=== PATIENT | female | born 1990 ===

== ENCOUNTER 2024-08-12 16:15 | Inpatient (IN) | payer MEDICARE, OTHER ==
[~2024-08-12] VITALS: Wt 65.6 kg
--- NOTE | 2024-08-12 16:19 | NUR ---
PT ARRIVAL TO PCU PT ARRIVED TO PCU 6 VIA AMBULANCE DIRECT ADMIT FROM [facility] AT 1600. UPON ARRIVAL, PT IS UNAROUSABLE TO VERBAL AND PHYSICAL STIMULI. SOME BODILY MOVEMENT/JERKING, BUT NO GROANING OR GRIMACE. PT TRANSFERRED TO HOSPITAL BED VIA SLIDE TRANSFER. PERSONAL BELONGINGS IN A BELONGINGS BAG AND LOCKED IN CLOSET IN PT'S ROOM. 1:1 SITTER PRESENT.
[2024-08-12 16:26] VITALS: BP 133/86
--- NOTE | 2024-08-12 16:49 | NUR ---
ARRIVAL TO PCU PT ARRIVED TO PCU AT 1600 VIA GURNEY AND 2 MEMBERS OF THE TRANSPORT. ROOM MITIGATED PRIOR TO PT ARRIVAL . PT SLID FROM [facility] TO PCU BED VIA 4 STAFF MEMBERS. PT NOT RESPONDING TO VERBAL OR PAIN STIMULI, STERNAL RUB AND PENLIGHT TO FINGERNAILS. PUPILS SMALL, 1-2, BUT RESPONSIVE. PT ROLLED SIDE TO SIDE BY STAFF, PT CONTINUES TO BE UNRESPONSIVE TO THE MOVEMENTS. SKIN ASSESSED BY THIS RN AND RACHID RN. SCRATHES SCATTERED THROUGHOUT. SCARS FROM OLD APPARENT SELF INFLICTED CUT GUTIERREZ. PT HAS SCAR TO FOREHEAD ABOUT MID BROW AREA, APPROX 1 INCH LONG. PT HAS 2 OLD OSTOMY SITES ON ABD AND SCAR AT UMBILCUS. PT TONGUE NOTED TO BE CONSTANTLY QUIVERING, MD NOTIFED AT BEDSIDE OF ABOVE FINDINGS. A 1:1 SITTER PRESENT AT TIME OF PT'S ARRIVAL TO UNIT AND UPDATED. PT HAS ANDREA PRESENT AT TIME OF ARRIVAL, PATENT WITH YELLOW URINE. PT CHANGED TO PAPER SCRUB TOP AND ATTENDS AFTER CLEANING CATHETER FROM BLOOD FROM APPARENT MENSTUAL CYCLE.
[2024-08-12] MEDS ORDERED: NS 1,000 ML IV SCH (17:10)
[2024-08-12 17:46] LABS: BASOPHILS PERCENT AUTO 1 % (0-2); EOSINOPHILS ABSOLUTE AUTO 0.04 K/mm3 (0.00-0.68); EOSINOPHILS PERCENT AUTO 0 % (0-6); Hemoglobin 12.6 g/dL (11.5-16.0); IMMATURE GRAN ABSOLUTE AUTO 0.06 K/mm3 (0.00-0.10); IMMATURE GRAN PERCENT AUTO 1 % (0-1); LYMPHOCYTES ABSOLUTE AUTO 2.47 K/mm3 (0.84-5.20); LYMPHOCYTES PERCENT AUTO 21 % (21-46); MONOCYTES ABSOLUTE AUTO 0.93 K/mm3 (0.16-1.47); MONOCYTES PERCENT AUTO 8 % (4-13); Mean Corpuscular HGB 30.1 pg (26.0-34.0); Mean Corpuscular HGB Conc 33.2 g/dL (31.5-36.5); Mean Corpuscular Volume 91 fL (80-100); NEUTROPHILS ABSOLUTE AUTO 8.15 K/mm3 (1.96-9.15); NEUTROPHILS PERCENT AUTO 69 % (41-73); Platelet Count 526 K/mm3 (150-400); RDW Coefficient Variation 14.1 % (11.7-14.2); RDW Standard Deviation 46.4 fL (35.1-46.3); Red Blood Cell Count 4.18 M/mm3 (3.80-5.20); White Blood Cell Count 11.75 K/mm3 (4.00-11.30)
[2024-08-12 18:05] LABS: Albumin, Blood 3.5 g/dL (3.4-5.0); Bilirubin, Total 0.3 mg/dL (0.1-1.0); Bun/Creatinine Ratio 20.1 (12.0-20.0); Calcium, Blood 9.1 mg/dL (8.5-10.1); Creatinine, Blood 0.55 mg/dL (0.40-1.00); Globulin, Blood 3.6 g/dL (2.2-4.0); Magnesium, Blood 1.6 mg/dL (1.6-2.4); Phosphorus, Blood 3.5 mg/dL (2.5-4.9); Potassium, Blood 3.7 mmol/L (3.5-5.5); Total Protein, Blood 7.1 g/dL (6.4-8.2)
--- NOTE | 2024-08-12 19:33 | NUR ---
THIS RN OVERSAW, REVIEWED AND AGREES WITH STUDENT RN'S ASSEMENTS AND CHARTING.
[2024-08-12 19:52] VITALS: BP 133/90
[2024-08-12 23:01] VITALS: BP 132/91
--- NOTE | 2024-08-13 03:05 | NUR ---
CHANGE IN CONDITION AT APPROX 0200, PT ABLE TO OPEN EYES, OBEY COMMANDS, RESPOND TO STIMULI, AND VERBALIZE NEEDS. PT ALERT AND ORIENTED TO SELF, SITUATION, DATE, BUT DID NOT REMEMBER GETTING TO THIS HOSPITAL. PT ENDORSES PAIN IN HEAD AND RIGHT HIP BUT UNABLE TO PUT A NUMBER TO THE PAIN. PT MILDLY NAUSEOUS, PROVIDED WITH EMESIS BAG. BEDSIDE SWALLOW TEST CONDUCTED, PT ABLE TO DRINK WATER THROUGH A STRAW WITHOUT COUGHING, CHOKING. CALL PLACED TO MD, SEE NEW ORDERS FOR PAIN MEDICATION AND DIET ORDER CHANGES.
[2024-08-13] MEDS ORDERED: ALBU90OI INH (03:35)
[2024-08-13] MEDS ORDERED: Acetaminophen 325 MG TABLET PO PRN (03:35)
[2024-08-13] MEDS ORDERED: SAPHRIS PO (03:36)
[2024-08-13] MEDS ORDERED: CLON1 PO (03:37)
[2024-08-13] MEDS ORDERED: FAMO40 PO (03:38)
[2024-08-13] MEDS ORDERED: DIVA500ER PO (03:38)
[2024-08-13 03:39] VITALS: BP 142/88
[2024-08-13] MEDS ORDERED: Prozac40 MG PO (03:39)
[2024-08-13] MEDS ORDERED: NALOXONE HCL4 MG (03:40)
[2024-08-13] MEDS ORDERED: ONDA4 PO (03:40)
[2024-08-13] MEDS ORDERED: PROC25S PR (03:44)
[2024-08-13] MEDS ORDERED: PROM25 PO (03:45)
[2024-08-13 04:05] LABS: BASOPHILS PERCENT AUTO 1 % (0-2); EOSINOPHILS ABSOLUTE AUTO 0.05 K/mm3 (0.00-0.68); EOSINOPHILS PERCENT AUTO 0 % (0-6); Hematocrit 37.9 % (33.0-51.0); Hemoglobin 12.4 g/dL (11.5-16.0); IMMATURE GRAN ABSOLUTE AUTO 0.07 K/mm3 (0.00-0.10); IMMATURE GRAN PERCENT AUTO 1 % (0-1); LYMPHOCYTES ABSOLUTE AUTO 2.48 K/mm3 (0.84-5.20); LYMPHOCYTES PERCENT AUTO 19 % (21-46); MONOCYTES ABSOLUTE AUTO 1.01 K/mm3 (0.16-1.47); MONOCYTES PERCENT AUTO 8 % (4-13); Mean Corpuscular HGB 30.4 pg (26.0-34.0); Mean Corpuscular HGB Conc 32.7 g/dL (31.5-36.5); Mean Corpuscular Volume 93 fL (80-100); Mean Platelet Volume 9.3 fL (9.1-12.4); NEUTROPHILS ABSOLUTE AUTO 9.48 K/mm3 (1.96-9.15); NEUTROPHILS PERCENT AUTO 72 % (41-73); Platelet Count 530 K/mm3 (150-400); RDW Coefficient Variation 14.2 % (11.7-14.2); RDW Standard Deviation 47.8 fL (35.1-46.3); Red Blood Cell Count 4.08 M/mm3 (3.80-5.20); White Blood Cell Count 13.19 K/mm3 (4.00-11.30)
[2024-08-13 04:31] LABS: Albumin, Blood 3.2 g/dL (3.4-5.0); Albumin/Globulin Ratio 0.9 (0.8-1.8); Bilirubin, Total 0.4 mg/dL (0.1-1.0); Bun/Creatinine Ratio 15.5 (12.0-20.0); Calcium, Blood 8.9 mg/dL (8.5-10.1); Creatinine, Blood 0.65 mg/dL (0.40-1.00); Globulin, Blood 3.6 g/dL (2.2-4.0); Potassium, Blood 3.7 mmol/L (3.5-5.5); Total Protein, Blood 6.8 g/dL (6.4-8.2)
[2024-08-13] MEDS ORDERED: Nicotine 21 MG PATCH TOP SCH (05:15)
[2024-08-13] MEDS ORDERED: HYDROcodone 5-APAP 325 TAB PO PRN (06:05)
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
[2024-08-13 08:18] VITALS: BP 122/90
[2024-08-13] MEDS ORDERED: Enoxaparin 40 MG/0.4 ML SYR SC SCH (09:00)
[2024-08-13 12:36] VITALS: BP 119/93
[2024-08-13] MEDS ORDERED: Acetamin/Butalbital/Caffeine Tab PO STA (12:55)
[2024-08-13 15:45] VITALS: BP 118/87
--- NOTE | 2024-08-13 18:09 | NUR ---
End of shift note. Pt met with psych this morning. Pt will remain on high SI, no hold. MD would like to keep Pt inhouse for 4 days. Pt has had significant amounts of headache complaints. Medicated per MAY. Head CT this evening. Pt also reported tremor and an increase in stutter. Poison control reported it may be related to the olanzapine overdose. Pt is able to make needs known. 1:1 sitter is at bedside
[2024-08-13 19:28] VITALS: BP 132/91
[2024-08-13] MEDS ORDERED: ClonazePAM 1 MG Tab PO SCH (21:00)
[2024-08-13] MEDS ORDERED: OLANZapine 10 MG Tab PO SCH ×2 (21:00)
[2024-08-13] MEDS ORDERED: ClonazePAM 0.5 MG Tab PO SCH (21:00)
[2024-08-13 23:55] VITALS: BP 112/67
[2024-08-14 03:12] VITALS: BP 110/73
[2024-08-14 04:21] LABS: Hematocrit 33.2 % (33.0-51.0); Hemoglobin 10.9 g/dL (11.5-16.0); Mean Corpuscular HGB 30.2 pg (26.0-34.0); Mean Corpuscular HGB Conc 32.8 g/dL (31.5-36.5); Mean Corpuscular Volume 92 fL (80-100); Mean Platelet Volume 8.9 fL (9.1-12.4); Platelet Count 461 K/mm3 (150-400); RDW Coefficient Variation 13.9 % (11.7-14.2); Red Blood Cell Count 3.61 M/mm3 (3.80-5.20); White Blood Cell Count 7.73 K/mm3 (4.00-11.30)
[2024-08-14 04:40] LABS: Calcium, Blood 8.4 mg/dL (8.5-10.1); Creatinine, Blood 0.63 mg/dL (0.40-1.00); Potassium, Blood 3.8 mmol/L (3.5-5.5)
[2024-08-14] MEDS ORDERED: LORazepam 0.5 MG Tab PO ONE (05:10)
--- NOTE | 2024-08-14 06:06 | NUR ---
SHIFT SUMMARY PT A/OX4, PLEASANT, COOPERATIVE WITH CARE, VERBALIZES NEEDS. 1:1 SITTER FOR HIGH RISK SI, PRECAUTIONS IN PLACE. MILDLY ANXIOUS. ENDORSES SEVERE PAIN IN HEAD AND RIGHT HIP, TREATING PER MAR WITH MIN-MOD IMPROVEMENT. INTERMITTENT TREMORS OBSERVED. ON CONTINUOUS TELEMETRY, SINUS RHYTHM, HR 70 S-90 S. PULSES PALPABLE BY TOUCH. PT DENIES CHEST PAIN/PRESSURE. RA, SATS ABOVE 95%, BREATHING IS UNLABORED. AMBULATING TO BATHROOM WITH SBA FOR CORDS AND LINE MANAGEMENT.
[2024-08-14 08:27] VITALS: BP 114/73
[2024-08-14] MEDS ORDERED: FLUoxetine HCL 20 MG CAP PO SCH (09:00)
[2024-08-14] MEDS ORDERED: SUMAtriptan succinate 50 MG Tab PO PRN (12:05)
[2024-08-14] MEDS ORDERED: HYDROcodone 5-APAP 325 TAB PO PRN (12:10)
[2024-08-14 13:09] VITALS: BP 113/69
[2024-08-14 16:27] VITALS: BP 138/84
--- NOTE | 2024-08-14 17:33 | NUR ---
SHIFT SUMMARY PATIENT AOX4 ABLE TO MAKE NEEDS KNOWN. ABLE TO TOLERATE DIET. ABLE TO AMBULATE TO THE BATHROOM. THE PATIENT COMPLAINS OF HEADACHE HIP PAIN TREMORS AND STUTTERING. THE PATIENT STATES THEY WANT ANOTHER HEAD SCAN THE HOSPITALIST IS AWARE. THE PATIENT ALSO WANTED THEIR PAIN MEDICATION INCREASED. THE PATIENT HAS HAD A 1:1 SITTER FOR THE SHIFT.
[2024-08-14 19:48] VITALS: BP 130/73
--- NOTE | 2024-08-14 19:49 | NUR ---
ASSUMPTION OF CARE PT RESTING IN BED,VISITOR LAYING BEDSIDE PT IN BED.BEDSIDE REPORT COMPLETED,PLAN OF CARE REVIEWED.PT DENIES PAIN,DENIES SOB,DENIES NEEDS A THIS TIME.1:1 SITTER AT BEDSIDE FOR SI PREVENTION PER PROTOCOL.MILD STUTTERING NOTED AND BILATERAL HANDS TREMORS.ASSESSMENT AND TREATMENT ONGOING PER CARE PLAN.
[2024-08-14] MEDS ORDERED: Docusate Sodium 100 MG Cap PO SCH (21:00)
[2024-08-14] MEDS ORDERED: Sennosides 8.6 MG Tab PO SCH (21:00)
[2024-08-14 23:53] VITALS: BP 119/75
[2024-08-15 03:59] VITALS: BP 108/69
--- NOTE | 2024-08-15 06:32 | NUR ---
PT FELL ASLEEP AFTER 2200,PT WAS DIFFICULT TO AROUSE WHILE SLEEPING BUT WHENEVER HE WOKE UP,HE ASKED FOR PAIN MEDICINE FOR HEADACHE.PT RATED HEADACHE AT 10/10 EVERYTIME,SAID THAT THE PRN PAIN MEDS GIVEN ARE NOT EFFECTIVE.1:1 SITTER AT BEDSIDE,SAFETY MEASURES PER SI PROTOCOL OBSERVED.PT STATES THAT HE NEEDS A HEAD MRI BECAUSE HIS HEADACHE IS NOT GETTING BETTER.PT HAD A SHOWER THIS MORNING,REMAINED WITHIN EYE SIGHT OF THE SITTER WHILE SHOWERING.PT AWAKE,SITTING UP IN BED.ASSESSMENT ONGOING PER CAREPLAN IN PLACE.
[2024-08-15 08:31] VITALS: BP 105/69
[2024-08-15] MEDS ORDERED: OLAN10 PO (11:25)
[2024-08-15] MEDS ORDERED: GABA100 PO (11:27)
[2024-08-15] MEDS ORDERED: PRAZ1 PO (11:27)
[2024-08-15] MEDS ORDERED: OMEGA-3 FISH OIL PO (11:30)
[2024-08-15] MEDS ORDERED: METF500 PO (11:30)
[2024-08-15] MEDS ORDERED: FENO54 PO (11:30)
[2024-08-15] MEDS ORDERED: ASCORBIC ACID PO (11:31)
[2024-08-15] MEDS ORDERED: MULVITA PO (11:31)
[2024-08-15] MEDS ORDERED: FERSU300 PO (11:32)
[2024-08-15] MEDS ORDERED: B-12500 MC2 PO (11:32)
[2024-08-15] MEDS ORDERED: DERMACINRX FOL1 EAC2 PO (11:33)
[2024-08-15] MEDS ORDERED: BACLOFEN5 M1 PO (11:34)
[2024-08-15 11:45] VITALS: BP 119/78
[2024-08-15] MEDS ORDERED: NARCAN4 M1 (11:47)
--- NOTE | 2024-08-15 12:28 | NUR ---
POISON CONTROL UPDATE UPDATED THE HOSPITALIST WHAT [place]ON FROM POISON CONTROL SAID THEY RECOMEND HOLDING OLANZIPINE AND STARTING BACLOFEN AND CONTINUING CLONAZIPAM.
[2024-08-15] MEDS ORDERED: Baclofen 10 MG Tab PO PRN (12:30)
[2024-08-15] MEDS ORDERED: Albuterol HFA200 ACT/6.7 GM INH INH PRN (12:35)
[2024-08-15] MEDS ORDERED: Gabapentin 100 MG Cap PO SCH (14:00)
[2024-08-15 17:05] VITALS: BP 106/69
[2024-08-15] MEDS ORDERED: Polyethylene Glycol 3350 17 gm PO SCH (18:00)
--- NOTE | 2024-08-15 19:20 | NUR ---
CARE ASSUMPTION: PATIENT IS ALERT AND ORIENTED x4. HAS VISIBLE TREMMOR AND STUTTERS WHEN COMMUNICATING VERBALLY. ABLE TO EXPRESS NEEDS. AMBULATES INDEPENDENTLY TO THE BATHROOM. CALL KENNEY IS WITHIN REACH AND BED IS AT THE LOWEST POSITION.
--- NOTE | 2024-08-15 19:31 | NUR ---
shift summary PATIENT AO X4 ABLE TO MAKE NEEDS KNOWN. DOES STILL HAVE HEADACHE AND TREMORS AND STUTTERING THE DR DID ORDER MRI. PATIENT GETTING PAIN MEDS PER MAR. TOLERATING DIET AND INDEPENDENT IN THE ROOM.
[2024-08-15 20:39] VITALS: BP 140/84
[2024-08-15] MEDS ORDERED: Docosahexanoic Acid/EPA 1,000 MG CAP PO SCH (21:00)
[2024-08-15] MEDS ORDERED: Prazosin HCl 1 MG Cap PO SCH (21:00)
--- NOTE | 2024-08-16 00:41 | NUR ---
TRANSFER NOTE: REPORT CALLED TO KEVIN ONTIVEROS. PATIENT IS BEING TRANSFERED TO ROOM 365.
--- NOTE | 2024-08-16 01:01 | NUR ---
TRANSFER NOTE: REPORT CALLED TO KEVIN ONTIVEROS. PATIENT TRANFERED TO MEDICAL FLOOR ROOM 364 VIA HOSPITAL BED.
[2024-08-16 01:08] VITALS: BP 103/74
--- NOTE | 2024-08-16 06:09 | NUR ---
T/F AND SUMMARY: PT T/F'D TO ROOM 364 AT 0038 VIA BED. HE'S A/OX4 AND WAS ORIENTED TO NEW ROOM AND CALL SYSTEM AND THIS RN AGREES TO PRIOR SHIFT ASSESSMENT FINDINGS. PT APPEARS MILDY FORGETFULL AT TIMES, FREQ ASKING SIMILAR Q'S AND MAKING REPEATED REQUESTS BUT IS PLEASANT/COOPERATIVE W/CARE. STUTTER AND TREMOR PERSISTS AND PT CONT'S TO REPORT YOUNG, NORCO PROVIDED FOR TOLERABLE RELIEF. HE'S UP AD JOSÉ MIGUEL AND FREQ SNACKS WERE PROVIDED PER REQUEST. NO ACUTE CHANGES, VSS/AFEBRILE. WILL REPORT TO DAY RN.
[2024-08-16 07:25] VITALS: BP 123/85
[2024-08-16] MEDS ORDERED: Ferrous Sulfate 325 MG Tab PO SCH (09:00)
[2024-08-16] MEDS ORDERED: Fenofibrate 67 MG Cap PO SCH (09:00)
[2024-08-16] MEDS ORDERED: Misc. Tablet PO SCH (09:00)
[2024-08-16] MEDS ORDERED: Cyanocobalamin 500 MCG Tab PO SCH (09:00)
[2024-08-16] MEDS ORDERED: Ascorbic Acid 250 MG Chew PO SCH (09:00)
[2024-08-16] MEDS ORDERED: Multivitamins 1 Tab PO SCH (09:00)
[2024-08-16] MEDS ORDERED: DOCUSIL100 MG PO (14:01)
[2024-08-16] MEDS ORDERED: Prozac20 MG PO (14:01)
--- NOTE | 2024-08-16 15:44 | NUR ---
PT DISHCARGED BY . ALL PIV'S REMOVED. D/C PACKET IN HAND. PT HAS NO QUESTIONS OR CONCERNS.
== END 2024-08-16 15:40 | disposition home or self-care (01) | DRG 917 ==
LOC: PCU 16:15 → MEDS 08-16 00:47
PROVIDERS: Internal Medicine; ADMIT Family Medicine
DX: T43.622A Poisoning by amphetamines, intentional self-harm, initial encounter (principal); G92.8 Other toxic encephalopathy; T40.2X2A Poisoning by other opioids, intentional self-harm, initial encounter; E87.6 Hypokalemia; R73.9 Hyperglycemia, unspecified; F99 Mental disorder, not otherwise specified; F41.9 Anxiety disorder, unspecified; M25.551 Pain in right hip; R51.9 Headache, unspecified; F13.90 Sedative, hypnotic, or anxiolytic use, unspecified, uncomplicated; I66.9 Occlusion and stenosis of unspecified cerebral artery; F12.90 Cannabis use, unspecified, uncomplicated; F25.0 Schizoaffective disorder, bipolar type; F17.200 Nicotine dependence, unspecified, uncomplicated; F10.90 Alcohol use, unspecified, uncomplicated; X58.XXXA Exposure to other specified factors, initial encounter
CPT/HCPCS: 36415; 70450; 70551; 80048; 80053; 82947; 83735; 84100; 85025; 85027; 96372; A9270; G0378; J1650; J7030

== ENCOUNTER 2025-03-18 15:05 | Inpatient (IN) | payer MEDICARE, OTHER ==
[~2025-03-18] VITALS: Ht 152.4 cm; Wt 76.6 kg
[~2025-03-18 15:05] MED LIST: ALBU90OI INH; ASCORBIC ACID PO; B-12500 MC2 PO; BACLOFEN5 M1 PO; CLON1 PO; DERMACINRX FOL1 EAC2 PO; DIVA500ER PO; DOCUSIL100 MG PO; FAMO40 PO; FENO54 PO; FERSU300 PO; GABA100 PO; METF500 PO; MULVITA PO; NALOXONE HCL4 MG; NARCAN4 M1; OLAN10 PO; OMEGA-3 FISH OIL PO; ONDA4 PO; PRAZ1 PO; PROC25S PR; PROM25 PO; Prozac20 MG PO; Prozac40 MG PO; SAPHRIS PO
[2025-03-18 20:32] VITALS: BP 127/110
[2025-03-18 20:35] VITALS: BP 127/110
[2025-03-18] MEDS ORDERED: Ondansetron 4 MG SoluTab MM PRN (20:50)
[2025-03-18] MEDS ORDERED: LORazepam 2 MG/ML 1ML Injection IM PRN (20:50)
[2025-03-18] MEDS ORDERED: Polyethylene Glycol 3350 17 gm PO PRN (20:50)
[2025-03-18] MEDS ORDERED: FLU VACC TS2025-26(6MOS UP)/PF 45 MCG/0.5 ML SYRINGE IM SCH (20:55)
[2025-03-18] MEDS ORDERED: Aluminum Hydroxide 320MG/5ML 473 ML PO PRN (20:55)
[2025-03-18] MEDS ORDERED: Haloperidol Lactate Inj. 5 MG/ML Injection IM PRN (20:55)
[2025-03-18] MEDS ORDERED: DiphenhydrAMINE HCl 50 MG/ML 1ML Vial IM PRN (20:55)
[2025-03-18] MEDS ORDERED: GABA400 PO (21:27)
[2025-03-18] MEDS ORDERED: MELA3 PO (21:28)
[2025-03-18] MEDS ORDERED: PANT40 PO (21:30)
[2025-03-18] MEDS ORDERED: HYDPAM50 PO (21:31)
[2025-03-18] MEDS ORDERED: TRAZ50 PO (21:33)
--- NOTE | 2025-03-18 22:05 | NUR ---
ADMISSION PT ADMITTED FROM [facility] FOR INTENTIONAL OVERDOSE AND SUICIDAL IDEATION. PT ARRIVED VIA SECURE TRANSPORT. SECURE CHECKING CLERK NOTIFIED THIS RN AND THAT THEY ARE VERY FAMILIAR WITH THE PATIENT, AND THAT THE PATIENT RECENTLY FAILED MENTAL HEALTH COURT. A RESULT THE PT MAY POTENTIALLY FACE FELONY OFFENSE AND MCFP TIME. E LEARNING DEVELOPER ALSO STATED THAT THE PT DOES HAVE A HISTORY OF AGGRESSION BUT NOT CURRENT. DEE DEE KEVIN BELONGINGS FROM PT. PT CHANGED INTO UNIT BASED SCRUBS AND SKIN CHECK COMPLETED BY KEVIN DEE AND KEVIN MELENDREZ. NO SKIN ABNORMALITIES NOTED. PT IS TRANSGENDER AND USES A COMPRESSION GARMET TO FLATTEN THEIR BREASTS PART OF THEIR GENDER AFFIRMING CARE. COMPRESSION GARMET IS FREE OF UNDERWIRE AND/OR OTHER HAZARDS SO PT WAS APPROVED TO HAVE THEIR GARMET. PT PREFERS TO USE THEY/THEM PRONOUNDS. PT CALM AND COOPERATIVE DURING ADMISSION ASSESSMENT. PT DOES NOT KNOW WHAT MEDICATIONS THAT THEY TAKE AT HOME AND STATES THAT THEY USE [facility]. HOWEVER, PT SAYS THAT THE ED FROM [facility] HAS THE MOST UP TO DATE MEDICATION LIST SINCE THEY HAVE NOT GONE TO FILL THEIR PRESCRIPTIONS IN A WHILE. MEDICATION RECONCILIATION COMPLETED USING [facility] ED MEDICATION LIST. PT REPORTED HAVING DIABETES AND BEING ON SLIDING SCALE INSULIN IN THE PAST BUT NOT CURRENTLY. PT ALSO REPORTED BEING ON METFORMIN IN THE PAST. NO DIABETES MEDICATIONS REPORTED ON [facility] ED MEDICATION LIST. DURING ASSESSMENT THE PT DENIED SI, BUT SAID THAT THEY TRIED TO OD OUT OF FEAR. THEY ENDORSE BOTH AUDITORY AND VISUAL HALLUCINATIONS. PT REPORTS SEEING SHADOWS AND EXPERIENCING COMMAND HALLUCINATIONS. PT REPORTS THAT VOICES TOLD THEM TO TAKE ALL THEIR MEDICATIONS. PT ALSO REPORTS PARANOIA THAT PEOPLE ARE AFTER THEN AND IT'S THE CAUSE OF THEIR FEAR. PT IS INVOLUNTARY AT THIS TIME AND CIVIL RIGHTS SIGNED. AFTER ADMISSION ASSESSMENT THE PATIENT HAD A SNACK, GOT SET UP FOR A SHOWER, AND IS CURRENTLY IN BED.
--- NOTE | 2025-03-19 05:19 | NUR ---
END OF SHIFT SUMMARY PATIENT HAS HAD NO ACUTE CHANGES NOTED SINCE ADMISSION. NO SIGNS OF DISTRESS NOTED. NO PRN MEDICATIONS WERE UTILIZED. CONTINUES TO BE MONITORED EVERY 15 MINUTES FOR WELLNESS AND SAFETY AND EVERY 4 HOUR SI SAFETY & MITIGATION.
[2025-03-19 07:55] LABS: CHOL/HDL RATIO 2.9; Cholesterol 141 mg/dL (50-200); HDL Cholesterol 48 mg/dL (>39); LDL/HDL RATIO 1.5; Low Density Lipoprotein Chol 74 mg/dL (0-110); Triglycerides 95 mg/dL (30-140); Very Low Density Lipoprot Chol 19 mg/dL (6-28)
[2025-03-19 08:52] VITALS: BP 109/95
[2025-03-19] MEDS ORDERED: Multivitamins 1 Tab PO SCH (09:00)
[2025-03-19] MEDS ORDERED: Albuterol HFA200 ACT/6.7 GM INH INH PRN (10:05)
--- NOTE | 2025-03-19 16:29 | NUR ---
SHIFT SUMMARY: PT IS ALERT, ORIENTED AND COOPERATIVE WITH CARE. CURRENTLY DENIES SI, HI AND AVH. REPORTS HISTORY OF HALLUCINTIONS BUT STATES THEY ARE NOT PRESENT THIS MORNING. PT WAS UP FOR BREAKFAST AND RETURNED TO THEIR ROOM. HAS MINIMAL EYE CONTACT AND A CONSTRICTED AFFECT. DECLINED AM MVI. STATES THAT THEIR MOOD IS ANXIOUS, DECLINED PRN MEDICATION AT THIS TIME. STATED "I OVERDOSED ON VISTARIL BEFORE I CAME IN, I'M NOT COMFORTABLE TAKING IT". THEY DECLINED TO PARTCIPATE IN AM GROUP AND WERE PROVIDED WITH SHOWER SUPPLIES. IN THE AFTERNOON PT CAME TO THE NURSES STATION C/O INCREASED ANXIETY THAT THEY RATE AT 8/10. STATES THAT THEIR ANXIETY CAN GET TO "HEART ATTACK LEVEL AND I HAVE HAD A HEART ATTACK BEFORE". PT APPEARS RESTLESS, WITH DARTING EYES AND PACING IN THE POE. MEDICATED WITH PERN ZYPREXA PER EMAR FOR MASS SCORE OF 7. PT SPENT MOST OF THE DAY RESTING ON THEIR BED IN THEIR ROOM. PT MONITORED WITH Q 15 MIN CHECKS FOR SAFETY PER UNIT PROTOCOL.
[2025-03-19 20:43] VITALS: BP 119/89
--- NOTE | 2025-03-20 05:04 | NUR ---
SHIFT SUMMARY 34 YEAR-OLD FEMALE TO MALE TRANSGENDER PRESENTS DISHEVELED LYING IN BED. THEY ARE ALERT AND ORIENTED. THEY SPEAKS IN A CLEAR VOICE AND IN AN APPROPRIATE VOLUME. THEY DID NOT MAKE EYE CONTACT DURING ASSESSMENT. AT THE TIME OF THEIR ASSESSMENT, THEY DESCRIBED THEIR MOOD "SAD. ANXIOUS". THEY ALSO DENIED SI, HI, AND AVTH AT THAT TIME. THEY DID NOT ATTEND SNACK OR DAY ROOM. THEY REMAINED IN THEIR BED SLEEPING. THEY WERE NOT COMPLIANT WITH MEDICATION ADMINISTRATION, THEY REFUSED TO GET OUT OF BED FOR 2100 MEDICATIONS. THEY DID NOT RECEIVE ANY PRN MEDICATIONS. THEY CONTINUE TO BE MONITORED EVERY 15 MINUTES FOR WELLNESS AND SAFETY WITH EVERY 4 HOUR SI SAFETY AND MITIGATION CHECKS.
[2025-03-20 08:47] VITALS: BP 109/90
--- NOTE | 2025-03-20 18:27 | NUR ---
SHIFT SUMMARY PT WAS DEPRESSIVE, CALM, AND COOPERATIVE. THEY JOINED IN ON GROUPS AND WAS PACING THE HALLWAY MOST OF THE SHIFT. PT WAS MEDICATION COMPLIANT. THEY WERE GIVEN ONE HYDROXYZINE PRN FOR ANXIETY, MASS SCORE OF 4. PT DID NOT HAVE ANY ACUTE BEHAVIORS TO REPORT. PT WAS INFORMED OF HOLD UP OF 03/27/25 PER THEIR INQUIRY. PT STATES ZYPREXA KEEPS VOICES OUT THEIR HEAD BUT DOES NOT HELP WITH THE ANXIETY. PT ALSO SAID THAT VISTARIL DOES NOT WORK AND WAS REQUESTING FROM THIS RN AND MD TO HAVE ATIVAN. MD WAS AWARE. NO NEW ORDER WAS GIVEN. BY THE END OF THE SHIF PT ASKED FOR ZYPREXA, THIS WILL BE TOLD TO NOC SHIFT.
[2025-03-20 20:12] VITALS: BP 131/85
--- NOTE | 2025-03-20 23:25 | NUR ---
MID SHIFT SUMMARY: PT WAS ANXIOUS TO RECEIVE MEDICATIONS AT BEGINNING OF SHIFT AND "GO TO SLEEP." WAS ABLE TO REDIRECT TO APPROPRIATE TIME. PATIENT STATES THEY DO NOT FEEL THE ANXIETY MEDICATIONS ARE HELPING AND THEY WOULD LIKE TO GET ATIVAN TAKEN AT HOME. PT DID WALK HALLS THIS EVENING AND THEN WENT TO BED ONCE EVENING MEDICATIONS WERE ADMINISTERED. STATED "HIGH ANXIETY" AND WAS MEDICATED WITH HYDROXIZINE AND ZYPREXA APPROX 1-2 HOURS APART. PT STATES THIS DID NOT HELP "AT ALL." CURRENTLY SLEEPING IN BED. DENIES SI BUT DOES ENDORSE AUDIO HALLUCINATIONS. STATES "USUALLY STAFF VOICES ARE LOUDER THAN THE VOICES IN MY HEAD BUT TODAY IT'S THE OPPOSITE."
--- NOTE | 2025-03-21 00:12 | NUR ---
ASSUMPTION OF CARE ASSUMED CARE OF PATIENT FROM KEVIN MARTINES AT MIDNIGHT. THEY ARE CURRENTLY RESTING QUIETLY IN THEIR BED. NO SIGNS OF ACUTE DISTRESS NOTED. THEY RECEIVED TO FOLLOWING PRN MEDICATIONS PRIOR IN THE SHIFT: ZYPREXA ZYDIS 10MG FOR ANXIETY AT 1929, TRAZADONE 50MG FOR SLEEP AT 2033, MELATONING 3MG FOR SLEEP AT 2033. CONTINUES TO BE MONITORED EVERY 15 MINUTES FOR WELLNESS AND SAFETY.
--- NOTE | 2025-03-21 04:31 | NUR ---
END OF SHIFT SUMMARY PATIENT HAS SLEPT SINCE THIS INSTRUCTIONAL DESIGN CONSULTANT ASSUMED CARE AT MIDNIGHT. NO PRN MEDICATIONS WERE UTILIZED. PATIENT DOES NOT SEEM TO BE IN ANY ACUTE DISTRESS. CONTINUES TO BE MONITORED EVERY 15 MINUTES FOR WELLNESS AND SAFETY.
[2025-03-21 08:04] VITALS: BP 111/81
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
--- NOTE | 2025-03-21 17:46 | NUR ---
SHIFT SUMMARY DENIES SI, HI, VTH. ENDORSES AUDITORY HALLUCINATIONS, DENIES COMMAND HALLUCINATIONS. PT WENT TO MEALS AND GROUPS W/ TWO COMPLAINTS OF ANXIETY TODAY, TREATED PER EMAR. PT ASKED ABOUT DISCHARGE AND INFORMED ABOUT PT HOLD, NO OTHER ACUTE EVENTS TODAY.
[2025-03-21 19:31] VITALS: BP 123/73
--- NOTE | 2025-03-22 04:56 | NUR ---
SHIFT SUMMARY 34 YEAR-OLD FEMALE TO MALE TRANSGENDER PRESENTS WELL GROOMED. THEY ARE ALERT AND ORIENTED. THEY SPEAK IN A CLEAR VOICE AND IN AN APPROPRIATE VOLUME. THEY ARE ABLE TO MAKE AND KEEP EYE CONTACT DURING CONVERSATIONS. AT THE TIME OF THEIR ASSESSMENT, THEY DESCRIBED THEIR MOOD "TIRED". THEY ALSO DENIED SI AND HI, BUT ENDORSED CHRONIC AVH AT THAT TIME. THEY DID NOT ATTEND SNACK OR DAY ROOM. THEY WERE COMPLIANT WITH MEDICATION ADMINISTRATION. THEY RECEIVED THE FOLLOWING PRN MEDICATIONS: TRAZADONE 50MG FOR SLEEP AT 2037 AND MELATONIN 3MG FOR SLEEP AT 2037. THEY CONTINUE TO BE MONITORED EVERY 15 MINUTES FOR WELLNESS AND SAFETY AND WITH EVERY 4 HOUR SI SAFETY AND MITIGATION CHECKS.
--- NOTE | 2025-03-22 04:57 | NUR ---
PRN NOTE PATIENT RECEIVED THE FOLLOWING PRN MEDICATIONS DURING GERIATRIC NURSE PRACTITIONER: TRAZADONE 50MG FOR SLEEP AT 2037 AND MELATONIN 3MG FOR SLEEP AT 2037.
[2025-03-22 07:47] VITALS: BP 126/80
--- NOTE | 2025-03-22 13:20 | NUR ---
SHIFT ASSESSMENT: PT DENIED SI, HI AND PHYSICAL PAIN. PT ENDORSED AVH, "THE VOICES ARE COMFORTING...THE SHADOWS AREN'T." PT DESCRIBED THEIR MOOD , "I WANT TO GO HOME...SAD THAT I CAN'T...I WILL TALK TO THE DOCTOR AND FIGURE OUT IF I CAN GO EARLY...AND GET A DIFFERENT ANXIETY MEDICATION." PT HAS BEEN WEARING HEADPHONES AND WALKING THE HALLS. PT HAS BEEN PLEASANT AND COOPERATIVE WITH CARE.
--- NOTE | 2025-03-22 18:23 | NUR ---
PT REPORTED ANXIETY 8/10w AND WAS GIVEN HYDROXYZINE 50MG FOR MASS OF 3 AT 18:19.
[2025-03-22 20:37] VITALS: BP 121/91
--- NOTE | 2025-03-23 04:08 | NUR ---
SHIFT SUMMARY PATIENT UP IN [place] WATCHING MOVIE WITH PEERS. VERBALIZED HAVING INCREASED ANXIETY IN RESPONSE TO ANOTHER PATIENT ON UNIT. MEDICATED WITH ZYPREXA AND VISTARIL ON DAYSHIFT. REQUESTING HS MEDICATIONS EARLY TONIGHT. DENIES SI, OR HI. AUDITORY HALLUCINATIONS INCREASE WITH ANXIETY, NO VTH. AT 1999 MELATONIN AND TRAZODONE GIVEN FOR SLEEP AID WITH HS MEDICATIONS. AT 2129 2ND TRAZODONE GIVEN. PATIENT APPEARS TO BE SLEEPING WELL T/O NIGHT RESP EVEN AND UNLABORED. CONTINUE TO MONITOR Q15MIN
[2025-03-23 09:12] VITALS: BP 116/80
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
--- NOTE | 2025-03-23 21:28 | NUR ---
PRN MEDICATION ADMINISTRATION: PATIENT REQUESTED AND WAS GIVEN MELATONIN 3 MG PO AND TRAZODONE 50 MG PO FOR C/O INSOMNIA. CONTINUING TO MONITOR FOR EFFECTIVENESS.
--- NOTE | 2025-03-24 00:41 | NUR ---
PRN MEDICATION ADMINISTRATION: PATIENT CONTINUED TO EXPERIENCE INSOMNIA AND REQUESTED A SECOND TRAZODONE 50 MG PO. MEDICATION WAS GIVEN DIRECTED. CONTINUING TO MONITOR FOR EFFECTIVENESS.
--- NOTE | 2025-03-24 04:09 | NUR ---
SHIFT SUMMARY: PATIENT WAS IN THE DAY ROOM AT THE BEGINNING OF THE SHIFT. PATIENT IS A 34 YEAR OLD, BORN FEMALE, IDENTIFIES AND IS MEDICALLY TRANSITIONING FROM FEMALE TO MALE, PREFERS HE/HIM PRONOUNS. PATIENT WAS ADMITTED TO THE [facility] ON 03/18/25 WITH SUICIDAL IDEATION WITH OVERDOSE. HE PRESENTED WITH A BLUNTED AFFECT AND SPOKE IN A MODERATE TONE WITH A TOUCH OF ANGER. HE STATED THAT "I FEEL LIKE THIS PLACE CAN REALLY HELP ME" BUT "I WAS UP MOST OF THE NIGHT WITH MY ROOMMATE IN AND OUT AND MAKING NOISE." PLAN FOR THIS SHIFT WAS EARPLUGS AND USING TRAZODONE NEEDED, AND RN WILL REDIRECT ROOMMATE. PATIENT WAS AGREEABLE TO THIS. HE DENIED SUICIDAL IDEATION, THOUGHTS OF SELF HARMING AND A/V/T HALLUCINATIONS. PATIENT STATED THAT HE SPOKE WITH THE DOCTOR ABOUT DISCHARGING AND "IT DIDN'T GO WELL. I WAS IN A BAD MOOD UNTIL I TALKED WITH MY MOM AND SISTER." PATIENT PRESENTED BEING IN A BETTER MOOD AFTER THE PLAN FOR THE EVENING WAS PUT IN PLACE. HE PARTICIPATED IN SNACK AND WRAP UP GROUP AND WAS COMPLIANT WITH EVENING MEDICATION ADMINISTRATION. HE REQUESTED AND WAS GIVEN THE FOLLOWING PRNS: TRAZODONE 50 MG PO PRN INSOMNIA AT 2027 MELATONIN 3 MG PO PRN INSOMNIA AT 2027 TRAZODONE SECOND DOSE 50 MG PO PRN INSOMNIA AT 35. AFTER THE SECOND TRAZODONE, PATIENT WAS NOTED TO BE RESTING QUIETLY IN BED WITH EYES CLOSED AND RESPIRATIONS CONFIRMED FOR THE REMAINDER OF THE SHIFT. CONTINUING TO MONITOR FOR SAFETY WITH Q15 MINUTE CHECKS.
[2025-03-24 07:58] VITALS: BP 126/86
--- NOTE | 2025-03-24 11:13 | NUR ---
IMPORTANT DISCHARGE INFORMATION PATIENT TO BE DISCHARGED TODAY AROUND 1:30PM. [facility] ([facility]) WILL B PICKING HIM UP. THEIR NUMBER IS . ALL PARTIES VERBALIZE AN UNDERSTANDING. FOLLOW UP WITH YOUR PCP ANGELES PICHARDO ON 04/05/25 AT 4PM AT THE [facility]. FOLLOW UP WITH ADAPT OPEN ACCESS AND ADAPTOUT PATIENT TREATMENT . THEY ARE WILLING TO DO A ASAM ASSESSMENT OVER THE PHONE. PHARMACY: [facility] FAX NUMBER
[2025-03-24] MEDS ORDERED: ABILIFY MYCITE15 M2 PO (12:22)
--- NOTE | 2025-03-24 13:45 | NUR ---
DISCHARGE NOTE PT Ax0x4, PLEASANT AND COOPERATIVE WITH CARE. PT DISCHARGING TODAY TO THEIR HOME IN [place], [place]. PT HAS BEEN FOLLOWING THEIR TREATMENT PLAN INCLUDING TAKING MEDS PRESCRIBED, ATTENDING [place] THERAPY GROUPS AND MINGLING APPROPRIATELY WITH PEERS/STAFF. PT DENIES SI/HI AND AVTH THIS SHIFT. DC INSTRUCTIONS WERE PROVIDED, INCLUDING DC MED LIST, PATIENT EDUCATION AND FOLLOW UP MENTAL HEALTH OUTPATIENT APPOINTMENT INFO. PT VERBALIZED UNDERSTANDING. SAFETY PLAN COMPLETED AND BELONGING WERE RETURNED. PT WAS SAFELY ESCORTED OUT OF [facility] TO TRANSPORT AT APPROX 1326.
== END 2025-03-24 13:26 | disposition home or self-care (01) | DRG 885 ==
LOC: BHU 15:05
PROVIDERS: ADMIT Psychiatry & Neurology Psychiatry
DX: F25.0 Schizoaffective disorder, bipolar type (principal); F15.20 Other stimulant dependence, uncomplicated; Z59.00 Homelessness unspecified; R45.851 Suicidal ideations; F43.25 Adjustment disorder with mixed disturbance of emotions and conduct; Z88.8 Allergy status to other drugs, medicaments and biological substances; Z88.2 Allergy status to sulfonamides; Z88.5 Allergy status to narcotic agent; Z88.1 Allergy status to other antibiotic agents; Z79.51 Long term (current) use of inhaled steroids; Z79.899 Other long term (current) drug therapy; Z28.21 Immunization not carried out because of patient refusal
CPT/HCPCS: 36415; 80061; 83036; A9270